=== PATIENT | male | born 1995 | race Caucasian/White ===

== ENCOUNTER 2017-10-26 14:15 | Emergency (ER) | payer SELFPAY ==
--- NOTE | 2017-10-26 14:23 | PDOC ---
Rapid Medical Evaluation Time Seen by Provider: 10/26/17 14:21 Medical Evaluation: Allergies Allergy/AdvReac Type Severity Reaction Status Date / Time No Known Allergies Allergy Verified 10/26/17 14:21 10/26/17 14:21 Otherwise healthy 22 year old male with right 4th digit ulceration and painful "lump" medial aspect of left arm. No fevers. V/s unremarkable. -To FT for further evaluation
[2017-10-26 14:25] VITALS: BP 108/68; PULSE 104; TEMP 98.1; BMI 18.3
[2017-10-26] MEDS ORDERED: DIPHTH,PERTUSS(ACELL),TET 0.5 ML DISP.SYRIN IM ONE (15:42)
[2017-10-26] MEDS ORDERED: IBUPROFEN 400 MG TABLET (FP) PO ONE ×2 (15:42→15:45)
--- NOTE | 2017-10-26 15:47 | PDOC ---
History of Present Illness - General Chief Complaint: Wound Infection Stated Complaint: Abscess Boil ON LEFT SIDE Time Seen by Provider: 10/26/17 14:21 History Source: Patient - History of Present Illness Occurred: reports: other Upper Extremity Pain Location: left: 3rd finger Past History - Past Medical History Allergies/Adverse Reactions: Allergies Allergy/AdvReac Type Severity Reaction Status Date / Time No Known Allergies Allergy Verified 10/26/17 14:21 Home Medications: Ambulatory Orders Clindamycin [Cleocin -] 300 mg PO Q6HPO #28 capsule 10/26/17 Ibuprofen [Motrin -] 400 mg PO QID 10/26/17 COPD: No - Immunization History Immunization Up to Date: No - Suicide/Smoking/Psychosocial Hx Smoking History: Current some day smoker Number of Cigarettes Smoked Daily: 2 Information on smoking cessation initiated: No Hx Alcohol Use: No Drug/Substance Use Hx: Yes Review of Systems - Review of Systems Constitutional: No: Chills, Fever *Physical Exam - Vital Signs Last Vital Signs Temp Pulse Resp BP Pulse Ox 98.1 F 104 H 18 108/68 98 10/26/17 14:21 10/26/17 14:21 10/26/17 14:21 10/26/17 14:21 10/26/17 14:21 - Physical Exam General Appearance: Yes: Appropriately Dressed. No: Apparent Distress Neck: positive: Supple Respiratory/Chest: negative: Respiratory Distress Musculoskeletal: positive: Other (superficial abscess with overlying erythema to distal phalanx of left fourth digit with reactive lymphadenopathy to epitrochlear node, no evidence of deeper infection ) Integumentary: positive: Dry, Warm Neurologic: positive: Fully Oriented, Alert, Normal Mood/Affect Procedures - Incision and Drainage I&D Site: Left: Other (4th digit) Betadine cleansed: Yes Anesthesia: 1% Lidocaine Volume(ml): 4 (digital block) Blade Size: 11 Attempts: 1 (w/ small amount of purulent discharge) Plain Packing: No Dressing: Yes Medical Decision Making - Medical Decision Making 10/26/17 15:43 22-year-old female, denies any past medical history here with pain, swelling and redness to left fourth finger. Patient states 2 weeks ago while in a junkyard, a plastic part of a car struck finger hard, causing a superficial wound resembling a "paper cut" per patient. States that site progressively got more painful and swollen and used a box liner several days ago to cesar area with minimal pus. Denies any fever or chills. Patient well-appearing, in no apparent distress with approximately 0.5 cm area of superficial abscess with localized erythema to distal phalanx of L 4th digit with reactive lymphadenopathy in area of epitrochlear lymph node. No evidence of deeper infection at this time, i.e., tenosynovitis. Tetanus updated. Will perform I&D of superficial abscess after digital block and send home on antibiotics with wound check in 48 hours. *DC/Admit/Observation/Transfer Diagnosis at time of Disposition: Abscess of finger of left hand - Discharge Dispostion Disposition: HOME Condition at time of disposition: Improved - Prescriptions Prescriptions: Clindamycin [Cleocin -] 300 mg PO Q6HPO #28 capsule - Referrals - Patient Instructions Printed Discharge Instructions: Cellulitis Additional Instructions: Keep dressing in place until scab starts to form. After 24 hours, you can let water run over wound. Take antibiotics as prescribed. Return to ED for redness, discharge or fever, otherwise, return in 2 days for wound check. - Post Discharge Activity
== END 2017-10-26 16:18 | disposition home or self-care (01) ==
LOC: JERFT 14:15
PROC: 3E0234Z Introduction of Serum, Toxoid and Vaccine into Muscle, Percutaneous Approach (ICD-10-PCS; principal; 2017-10-26)
PROC: 0H9GXZZ Drainage of Left Hand Skin, External Approach (ICD-10-PCS; 2017-10-26)
DX: L02.512 Cutaneous abscess of left hand (principal)
CPT/HCPCS: 90715; 99281-25

== ENCOUNTER 2017-10-29 12:29 | Emergency (ER) | payer SELFPAY ==
[2017-10-29 12:40] VITALS: BP 100/69; PULSE 79; TEMP 97.6; BMI 18.3
--- NOTE | 2017-10-29 14:30 | PDOC ---
Suture Removal/Wound Check HPI - History of Present Illness Chief Complaint: Revisit,Wound Recheck Stated Complaint: FOLLOW-UP Time Seen by Provider: 10/29/17 13:55 History Source: Yes: Patient Exam Limitations: Yes: No Limitations (pt with left fourth finger abscess here for wound check. pt started clindamycin states increased pain and redness and swelling to the left antecub area.) Past History - Past Medical History Allergies/Adverse Reactions: Allergies Allergy/AdvReac Type Severity Reaction Status Date / Time No Known Allergies Allergy Verified 10/29/17 12:36 Home Medications: Ambulatory Orders Clindamycin [Cleocin -] 300 mg PO Q6HPO #28 capsule 10/26/17 Ibuprofen [Motrin -] 400 mg PO QID 10/26/17 Cephalexin [Keflex] 250 mg PO QID #28 capsule 10/29/17 COPD: No - Immunization History Immunization Up to Date: No - Suicide/Smoking/Psychosocial Hx Smoking History: Never smoked Have you smoked in the past 12 months: No Number of Cigarettes Smoked Daily: 2 Information on smoking cessation initiated: Yes 'Breaking Loose' booklet given: 10/29/17 Hx Alcohol Use: No Drug/Substance Use Hx: No Substance Use Type: None Suture Removal/Wound Check PE - Physical Exam Laceration/Wound Check Symptoms: reports: Pain Comments: 10/29/17 14:50 left ring finger with 1cm area of scabbing, mild redness at the tip of the finger no radiation, no redness up the finger or up the arm , no fever left inner antecub area with area of erythema , blanching rash FROM of the joint no tenderness 10/29/17 18:37 Current Severity Level: None Medical Decision Making - Medical Decision Making 10/29/17 18:35 cc: finger wound check seen in ER had abscess drained here for wound check pt has a red rash to the left inner arm, non tender FROM of the arm no streaking up the arm no discharge or redness to the left 4th digit. the tip of the finger with area of scabbed wound will get xray to r/o FB will change antibiotic to keflex, pt may be having rash from the clindamycin pt has no allergies known at this time will irrigate and clean the wound bacitracin and bandaid *DC/Admit/Observation/Transfer Diagnosis at time of Disposition: Visit for wound check - Discharge Dispostion Disposition: HOME Condition at time of disposition: Good - Prescriptions Prescriptions: Cephalexin [Keflex] 250 mg PO QID #28 capsule - Referrals Referrals: Angel Estrada MD [Staff Physician] - - Patient Instructions Additional Instructions: keep clean and dry follow with the hand specialist for follow up next week stop the clindamycin and take keflex as directed if you have any fever, chills, redness streaking up the arm worsening pain or any other concerns return to ER - Post Discharge Activity
[2017-10-29] MEDS ORDERED: IBUPROFEN 600 MG TABLET (FP) PO ONE (14:42)
== END 2017-10-29 16:24 | disposition home or self-care (01) ==
LOC: JERFT 12:29
DX: Z09 Encounter for follow-up examination after completed treatment for conditions other than malignant neoplasm (principal); R21 Rash and other nonspecific skin eruption
CPT/HCPCS: 73140-TC-LT-FY; 99281-25

== ENCOUNTER 2018-09-26 14:00 | Emergency (ER) | payer SELFPAY ==
--- NOTE | 2018-09-26 14:22 | PDOC ---
Rapid Medical Evaluation Time Seen by Provider: 09/26/18 14:18 Medical Evaluation: Allergies Allergy/AdvReac Type Severity Reaction Status Date / Time No Known Allergies Allergy Verified 10/29/17 12:36 09/26/18 14:18 I have done a brief in-person assessment of this patient. The patient presents with a chief complaint of lesions on left finger x 3 days. Patient states lesions appear and is causing pain that runs up the arm. Denies exposure to similiar lesion. Pertinent physical exam findings NAD even and unlabored breathing left 4th digit with small tender lesions to lateral side I have ordered the following: none The patient will proceed to the Ed for further evaluation. Dx: lesions on finger
[2018-09-26 14:24] VITALS: BP 105/47; PULSE 87; TEMP 98.5; BMI 14.2
--- NOTE | 2018-09-26 14:50 | PDOC ---
History of Present Illness - General Stated Complaint: WARTS Time Seen by Provider: 09/26/18 14:18 - History of Present Illness Initial Comments: 09/26/18 14:47 23-year-old male without comorbidities presents for evaluation of a rash on his left fourth finger 3 days. No systemic symptoms. Past History - Past Medical History Allergies/Adverse Reactions: Allergies Allergy/AdvReac Type Severity Reaction Status Date / Time No Known Allergies Allergy Verified 10/29/17 12:36 Home Medications: Ambulatory Orders Acyclovir [Zovirax -] 800 mg PO 5XD #35 tablet 09/26/18 COPD: No - Immunization History Immunization Up to Date: No - Suicide/Smoking/Psychosocial Hx Smoking History: Never smoked Have you smoked in the past 12 months: No Number of Cigarettes Smoked Daily: 2 Information on smoking cessation initiated: No 'Breaking Loose' booklet given: 10/29/17 Hx Alcohol Use: No Drug/Substance Use Hx: Yes ([place]) Substance Use Type: None Review of Systems - Review of Systems Constitutional: No: Fever Integumentary: Yes: Rash *Physical Exam - Vital Signs Last Vital Signs Temp Pulse Resp BP Pulse Ox 98.5 F 87 18 105/47 L 99 09/26/18 14:18 09/26/18 14:18 09/26/18 14:18 09/26/18 14:18 09/26/18 14:18 - Physical Exam Comments: 09/26/18 14:48 HEAD: NC/AT EYES: Conjuntiva clear MS: Full ROM in all joints without edema NEUROLOGIC: No gross sensory or motor deficits, NVID SKIN: Normal color and temperature no lesions or rashes There is a vesicular area on the ulnar aspect of the left fourth finger overlying the PIPJ there are 3 vesicles clustered together to vesicles clustered above the larger clustered area and then another smaller vesicle no indication of secondary infection or gross sensorimotor deficits Moderate Sedation - Procedure Monitoring Vital Signs: Procedure Monitoring Vital Signs Temperature 98.5 F 09/26/18 14:18 Pulse Rate 87 09/26/18 14:18 Respiratory Rate 18 09/26/18 14:18 Blood Pressure 105/47 L 09/26/18 14:18 O2 Sat by Pulse Oximetry (%) 99 09/26/18 14:18 *DC/Admit/Observation/Transfer Diagnosis at time of Disposition: Herpetic say - Discharge Dispostion Disposition: HOME Condition at time of disposition: Stable Decision to Admit order: No - Prescriptions Prescriptions: Acyclovir [Zovirax -] 800 mg PO 5XD #35 tablet - Referrals Referrals: Cathy Wood MD [Staff Physician] - - Patient Instructions Additional Instructions: Please take the medication as directed return to the emergency room should symptoms worsen or go unresolved and follow up with the primary care physician one to 2 days for further evaluation and treatment options. - Post Discharge Activity
== END 2018-09-26 14:57 | disposition home or self-care (01) ==
LOC: JERFT 14:00 → JER 14:00 → JERFT 14:57
DX: B00.89 Other herpesviral infection (principal); Z72.0 Tobacco use
CPT/HCPCS: 99281-25

== ENCOUNTER 2018-12-13 12:39 | Emergency (ER) | payer SELFPAY ==
[2018-12-13 12:46] VITALS: BP 109/63; PULSE 89; TEMP 98.4; BMI 19.0
--- NOTE | 2018-12-13 13:26 | PDOC ---
History of Present Illness - General Chief Complaint: Pain, Acute Stated Complaint: LT. KNEE PAIN X 5 DAYS / PAIN OF 6 Time Seen by Provider: 12/13/18 12:56 - History of Present Illness Initial Comments: 12/13/18 13:21 23-year-old male without comorbidities presents for evaluation of left knee pain. He states 5 days ago while lifting a heavy package at work his knee buckled and he felt immediate pain. Seen by his work physician x-rays were taken there was no acute fracture. He was placed in a knee brace and told to follow-up with orthopedic surgery he reports to the emergency room because the ibuprofen is not working for him at home. Past History - Past Medical History Allergies/Adverse Reactions: Allergies Allergy/AdvReac Type Severity Reaction Status Date / Time No Known Allergies Allergy Verified 12/13/18 12:42 Home Medications: Ambulatory Orders Acyclovir [Zovirax -] 800 mg PO 5XD #35 tablet 09/26/18 COPD: No - Immunization History Immunization Up to Date: No - Suicide/Smoking/Psychosocial Hx Smoking History: Current every day smoker Have you smoked in the past 12 months: Yes Number of Cigarettes Smoked Daily: 2 Information on smoking cessation initiated: No 'Breaking Loose' booklet given: 10/29/17 Hx Alcohol Use: No Drug/Substance Use Hx: No Substance Use Type: None Review of Systems - Review of Systems Musculoskeletal: Yes: Joint Pain *Physical Exam - Vital Signs Last Vital Signs Temp Pulse Resp BP Pulse Ox 98.4 F 89 16 109/63 99 12/13/18 12:42 12/13/18 12:42 12/13/18 12:42 12/13/18 12:42 12/13/18 12:42 - Physical Exam Comments: 12/13/18 13:21 Knee skin color and temperature are normal. There is no palpable effusion. Range of motion 0-90 with discomfort at terminal flexion. Extensor mechanism is intact.. No medial or lateral joint line tenderness. No patellofemoral crepitation. Mild tenderness over the medial lateral patellofemoral facet No evidence of instability. Thigh and calf are soft and nontender. There are no gross sensory motor deficits. Negative straight leg raise test normal hip and ankle range of motion. Medical Decision Making - Medical Decision Making 12/13/18 13:22 This is most likely patellofemoral strain continue with the knee brace follow- up with orthopedic surgery will supplement with Tylenol and addition to the ibuprofen. *DC/Admit/Observation/Transfer Diagnosis at time of Disposition: Strain of knee and leg, left - Discharge Dispostion Disposition: HOME Condition at time of disposition: Stable Decision to Admit order: No - Referrals Referrals: Surinder Cruz DO [Staff Physician] - - Patient Instructions Printed Discharge Instructions: Knee Sprain, DI for Patellofemoral Pain Syndrome-Adult, DI for Knee Pain Additional Instructions: He may weight-bear as tolerated with the use of crutches. Please follow-up with orthopedic surgery in 1-2 days for further evaluation and treatment options. Return to the emergency room for worsening symptoms. He may supplement Tylenol as directed in addition to your ibuprofen for pain - Post Discharge Activity Forms/Work/School Notes: Back to Work
== END 2018-12-13 13:39 | disposition home or self-care (01) ==
LOC: JERFT 12:39
DX: S86.812A Strain of other muscle(s) and tendon(s) at lower leg level, left leg, initial encounter (principal); S76.112A Strain of left quadriceps muscle, fascia and tendon, initial encounter; X50.0XXA Overexertion from strenuous movement or load, initial encounter; Y93.89 Activity, other specified; Y92.63 Factory as the place of occurrence of the external cause; Y99.0 Civilian activity done for income or pay
CPT/HCPCS: 99281-25

== ENCOUNTER 2019-03-26 12:36 | Emergency (ER) | payer SELFPAY ==
[2019-03-26 12:42] VITALS: BMI 18.6
[2019-03-26] MEDS ORDERED: morphine CARPU-JECT 4 MG/1 ML DISP.SYRIN IVPUSH ONE (13:35)
[2019-03-26] MEDS ORDERED: morphine SULFATE 4 MG/ML VIAL ONE (13:46)
--- NOTE | 2019-03-26 14:27 | PDOC ---
History of Present Illness - General Chief Complaint: Pain Stated Complaint: ABD.PAIN Time Seen by Provider: 03/26/19 13:35 History Source: Patient Exam Limitations: No Limitations - History of Present Illness Initial Comments: 03/26/19 14:22 CHIEF COMPLAINT: Abdominal pain HISTORY OF PRESENT ILLNESS: This is a 23-year-old male with a history of left hydrocele who presents complaining of 3 days of constant and severe abdominal pain. He denies any associated nausea, vomiting, diarrhea, or constipation. He does report that he had noticed a "lump" in his left testicle for the past week. He reports that this is new and different from his previous symptoms that led to an MRI revealing hydrocele. He denies penile discharge. He does have dysuria and frequency/urgency. Vital signs on arrival are all within normal limits. REVIEW OF SYSTEMS: GENERAL/CONSTITUTIONAL: No fever or chills. No weakness. No weight change. HEAD, EYES, EARS, NOSE AND THROAT: No change in vision. No ear pain or discharge. No sore throat. CARDIOVASCULAR: No chest pain or palpitations. RESPIRATORY: No cough, wheezing, or shortness of breath. GASTROINTESTINAL: No nausea, vomiting, diarrhea or constipation. GENITOURINARY: See history of present illness. MUSCULOSKELETAL: No joint or muscle swelling or pain. No neck or back pain. SKIN: No rash or easy bruising. NEUROLOGIC: No headache, vertigo, loss of consciousness, or loss of sensation. PSYCHIATRIC: No depression or anxiety. ENDOCRINE: No increased thirst. No abnormal weight change. HEMATOLOGIC/LYMPHATIC: No anemia, easy bleeding, or history of blood clots. ALLERGIC/IMMUNOLOGIC: No hives or skin allergy. No latex allergy. PHYSICAL EXAM: GENERAL: The patient is awake, alert, and fully oriented, in distress secondary to pain. HEAD: Normal with no signs of trauma. ENT: Pupils equal, round and reactive to light, extraocular movements intact, sclera anicteric, conjunctiva clear. Neck supple. LUNGS: Clear to auscultation bilaterally. Normal excursion. No respiratory distress or use of accessory muscles. CV: RRR, S1/S2, no MRG. Cap refill < 2 sec. ABDOMEN: Soft, non-distended, tender to gentle palpation and left lower quadrant and left inguinal region. Small, tender mass appreciated just superior to left testes. EXTREMITIES: Normal range of motion, no edema. NEUROLOGICAL: Normal speech, normal gait. CN II-XII grossly intact. PSYCH: Normal mood, normal affect. SKIN: Warm, dry, normal turgor, no rashes or lesions noted. Past History - Past Medical History Allergies/Adverse Reactions: Allergies Allergy/AdvReac Type Severity Reaction Status Date / Time No Known Allergies Allergy Verified 03/26/19 12:42 Home Medications: Ambulatory Orders NK [No Known Home Medication] 03/26/19 COPD: No - Immunization History Immunization Up to Date: No - Suicide/Smoking/Psychosocial Hx Smoking History: Current every day smoker Have you smoked in the past 12 months: Yes Number of Cigarettes Smoked Daily: 2 Information on smoking cessation initiated: No 'Breaking Loose' booklet given: 10/29/17 Hx Alcohol Use: No Drug/Substance Use Hx: Yes ([place]) Substance Use Type: None *Physical Exam - Vital Signs Last Vital Signs Temp Pulse Resp BP Pulse Ox 98.4 F 90 18 105/63 100 03/26/19 12:39 03/26/19 12:39 03/26/19 12:39 03/26/19 12:39 03/26/19 12:39 ED Treatment Course - LABORATORY CBC & Chemistry Diagram: 03/26/19 13:45 03/26/19 13:45 - RADIOLOGY Radiology Studies Ordered: Category Date Time Status ABDOMEN & PELVIS CT WITH CONTR [CT] Stat CT Scan 03/26/19 13:49 Ordered SCROTUM AND CONTENTS US [US] Stat Ultrasound 03/26/19 13:43 Ordered - Medications Given in the ED: ED Medications Discontinued Medications Generic Name Dose Route Start Last Admin Trade Name Melina PRN Reason Stop Dose Admin Morphine Sulfate 4 mg 03/26/19 13:35 03/26/19 14:01 Morphine Injection - IVPUSH 03/26/19 13:36 4 mg ONCE ONE Administration Medical Decision Making - Medical Decision Making 03/26/19 14:27 A/P: 23-year-old male with left lower quadrant abdominal and left testicular pain, with newly appreciated mass. 1. Labs including CBC, CMP, UA/culture/GC 2. Ultrasound scrotum and contents 3. CT abdomen and pelvis with PO/IV contrast 4. Reevaluate 03/26/19 16:36 Scrotum ultrasound reviewed: There is a 6 mm cyst in the left epididymis. Both testicles are normal in size without evidence of a mass and vascular flow is normal without evidence of torsion. These results were reviewed with the patient. Patient signed out to MARYJO Best to follow-up CT to rule out hernia or other abnormality and determine disposition. *DC/Admit/Observation/Transfer - Referrals Schedule a call back: Call back Referrals: Robert Mcneal MD [Primary Care Provider] - - Patient Instructions - Post Discharge Activity
[2019-03-26 14:31] LABS: HEMOGLOBIN 15.1 GM/dL (11.7-16.9); LYMPH % 18.9 % (8-40); MCH 30.4 pg (25.7-33.7); MCHC 33.2 g/dl (32.0-35.9); MEAN CELL VOLUME 91.8 fl (80-96)
[2019-03-26 14:38] LABS: PH,URINE >= 9.0 (5.0-8.0); URINE APPEARANCE CLEAR; URINE BILIRUBIN NEGATIVE (NEGATIVE); URINE COLOR YELLOW; URINE GLUCOSE (UA) NEGATIVE (NEGATIVE); URINE KETONE NEGATIVE (NEGATIVE); URINE LEUK ESTERASE NEGATIVE (NEGATIVE); URINE NITRITE NEGATIVE (NEGATIVE); URINE PROTEIN NEGATIVE (NEGATIVE); URINE UROBILINOGEN 0.2 mg/dL (0.2-1.0)
[2019-03-26 14:44] LABS: ALBUMIN 4.2 g/dl (3.4-5.0); BILIRUBIN,TOTAL 0.3 mg/dL (0.2-1); BLOOD UREA NITROGEN 7.6 mg/dL (7-18); CALCIUM 9.2 mg/dL (8.5-10.1); CREATININE 0.8 mg/dL (0.55-1.3); POTASSIUM 4.2 mmol/L (3.5-5.1); TOT PROT 7.4 g/dl (6.4-8.2)
[2019-03-26 14:47] LABS: BASO % 0.4 % (0-2.0); EOS % 2.8 % (0-4.5); HEMATOCRIT 45.7 % (35.4-49); MONO % 7.9 % (3.8-10.2); PLATELET COUNT 200 K/MM3 (134-434); RBC 4.98 M/mm3 (4.00-5.60); RDW 13.9 % (11.9-15.9)
--- NOTE | 2019-03-26 18:02 | PDOC ---
*Physical Exam - Vital Signs Last Vital Signs Temp Pulse Resp BP Pulse Ox 98.4 F 90 18 105/63 100 03/26/19 12:39 03/26/19 12:39 03/26/19 12:39 03/26/19 12:39 03/26/19 12:39 - Physical Exam Male Genitalia: positive: epididymus tender (left with mass present). negative : discharge, testicular tenderness Lymphatic: positive: Adenopathy (left inguinal) Musculoskeletal: positive: Normal Inspection. negative: CVA Tenderness Extremity: positive: Normal Inspection ED Treatment Course - LABORATORY CBC & Chemistry Diagram: 03/26/19 13:45 03/26/19 13:45 - ADDITIONAL ORDERS Additional order review: Laboratory Results 03/26/19 03/26/19 14:07 13:45 Sodium 141 Potassium 4.2 Chloride 108 H Carbon Dioxide 26 Anion Gap 8 BUN 7.6 Creatinine 0.8 Est GFR (CKD-EPI)AfAm 146.96 Est GFR (CKD-EPI)NonAf 126.80 Random Glucose 75 Calcium 9.2 Total Bilirubin 0.3 AST 18 ALT 29 Alkaline Phosphatase 61 Total Protein 7.4 Albumin 4.2 Lipase 89 Urine Color Yellow Urine Appearance Clear Urine pH >= 9.0 H Ur Specific [place] 1.020 Urine Protein Negative Urine Glucose (UA) Negative Urine Ketones Negative Urine Blood Negative Urine Nitrite Negative Urine Bilirubin Negative Urine Urobilinogen 0.2 Ur Leukocyte Esterase Negative 03/26/19 13:45 RBC 4.98 MCV 91.8 MCHC 33.2 RDW 13.9 MPV 9.0 Neutrophils % 70.0 Lymphocytes % 18.9 Monocytes % 7.9 Eosinophils % 2.8 Basophils % 0.4 - Medications Given in the ED: ED Medications Discontinued Medications Generic Name Dose Route Start Last Admin Trade Name Freq PRN Reason Stop Dose Admin Morphine Sulfate 4 mg 03/26/19 13:35 03/26/19 14:01 Morphine Injection - IVPUSH 03/26/19 13:36 4 mg ONCE ONE Administration Progress Note - Progress Note Progress Note: Received signout from MARYJO Templeton. Briefly this is a 23-year-old male with history of hydrocele on the left side 3 days of constant severe abdominal pain and testicular pain. Ultrasound shows a 6 mm cyst in the left epididymis. Both testicles are normal in size without evidence of mass and vascular flow is normal without evidence of torsion. CBC is unremarkable Chemistries are unremarkable Urinalysis notable for a pH of greater than [address] scan for evaluation of left lower quadrant pain. Medical Decision Making - Medical Decision Making 03/26/19 19:07 CT scan is read by imaging parts person: The visualized lung bases are clear. The upper abdominal visceral organs are unremarkable There is no bowel instruction or distention. The appendix is normal. No evidence of an acute process in the left lower quadrant. Pelvic organs are unremarkable. No actual abdominal free air, free fluid or loculated collections. Given epididymal swelling and negative CAT scan I will treat the patient for gonorrhea and chlamydia prior to discharge. We'll results of CAT scan and ultrasound and been explained to the patient was given the opportunity to ask questions. All questions have been answered. This patient does have history of genital herpes, left inguinal lymphadenopathy , nasal congestion and fatigue I will treat as if this of prodromal affected of potential herpes outbreak. I discussed the physical exam findings, ancillary test results and final diagnoses with the patient. I answered all of the patient's questions. The patient was satisfied with the care received and felt comfortable with the discharge plan and treatment plan. The patient will call their primary care physician within 24 hours to arrange follow-up and will return to the Emergency Department with any new, persistent or worsening symptoms. *DC/Admit/Observation/Transfer Diagnosis at time of Disposition: Epididymal cyst - Discharge Dispostion Disposition: HOME Condition at time of disposition: Stable Decision to Admit order: No - Prescriptions Prescriptions: Valacyclovir HCl [Valtrex -] 1,000 mg PO DAILY #5 tablet - Referrals Schedule a call back: Call back Referrals: Robert Mcneal MD [Primary Care Provider] - Amilcar Johansen MD [Staff Physician] - - Patient Instructions Additional Instructions: You been treated today with azithromycin 1 g by mouth for treatment of presumed chlamydia You have been treated with Rocephin 250 mg injection for treatment of presumned gonorrhea The gonorrhea and chlamydia testing will not be completed for the next few days. You may call and leave message for return phone call with lab results. Be sure to be clear with your name, birthdate, and phone number Your ultrasound showed a cyst on her left epididymis. You been given a referral for urologist. Call for reevaluation and further treatment. You have been given a prescription for Valtrex to be taken as suppressive therapy of genital herpes. Make an appointment with her doctor within the next 5 days for reevaluation and potential continued treatment. Always use condoms with the partners Followup with [facility] C[facility] DIRECTOR or PMD in one week for reevaluation and retesting. - Post Discharge Activity
[2019-03-26] MEDS ORDERED: AZITHROMYCIN 250 MG TABLET PO ONE (19:05)
[2019-03-26] MEDS ORDERED: cefTRIAXone SODIUM 1 GM VIAL ONE (19:23)
[2019-03-26] MEDS ORDERED: AZITHROMYCIN 250 MG TABLET ONE (19:23)
[2019-03-26 21:45] VITALS: BP 110/60; PULSE 87; TEMP 98
== END 2019-03-26 21:30 | disposition home or self-care (01) ==
LOC: JER 12:36
PROC: 3E02329 Introduction of Other Anti-infective into Muscle, Percutaneous Approach (ICD-10-PCS; principal; 2019-03-26)
PROC: 3E033NZ Introduction of Analgesics, Hypnotics, Sedatives into Peripheral Vein, Percutaneous Approach (ICD-10-PCS; 2019-03-26)
DX: N50.3 Cyst of epididymis (principal)
CPT/HCPCS: 36415; 74177-TC; 76870-TC; 80053; 81003; 83690; 85025; 87077; 87086; 87491; 87591; 96372; 96374; 99283-25